=== PATIENT | female | born 1995 | race Caucasian/White ===

== ENCOUNTER 2020-01-02 20:04 | Outpatient (CLI) | payer MEDICAID ==
[~2020-01-02] VITALS: Ht 64 cm; Wt 77.8 kg
--- NOTE | 2020-01-02 20:12 | NUR ---
ANURAG MARSHALL presented to unit via ambulatory from ED, accompanied by so, with c/o BACK PAIN. ANURAG MARSHALL weighed, gowned, voided, and to bed. EFHM and TOCO applied, VS taken. ANURAG MARSHALL oriented to bed controls, call light, TV, heat, and A/C controls.
[2020-01-02 20:27] VITALS: BP 114/76
[2020-01-02] MEDS ORDERED: ACET-2267 PO (20:36)
[2020-01-02] MEDS ORDERED: PNV11TAB PO (20:36)
[2020-01-02 20:39] VITALS: BP 114/76
[2020-01-02 20:41] LABS: BILIRUBIN,URINE NEGATIVE (NEGATIVE); COLOR,URINE YELLOW; GLUCOSE, URINE (UA) NEGATIVE (NEGATIVE); KETONES,URINE 3+ (NEGATIVE); LEUKOCYTE ESTERASE ,URINE NEGATIVE (NEGATIVE); NITRITE,URINE NEGATIVE (NEGATIVE); PROTEIN,URINE TRACE (NEGATIVE)
--- NOTE | 2020-01-02 20:43 | NUR ---
Dr. Markham called with report of pt. Informed of pt complaints. Informed that pt had one contraction when put on the monitor, but since has just had some irritability. Strip reviewed. Informed that clean catch urine was sent down, but results are still pending. Vitals reviewed. orders to push oral hydration and let him know when UA is back. States that if urine is clean and pt continues with no contractions she can be discharged in an hour.
[2020-01-02 20:48] LABS: BACTERIA,URINE TRACE /HPF; CLARITY,URINE SL CLOUDY; RBC,URINE 50-100 /HPF; WBC,URINE 0-2 /HPF
--- NOTE | 2020-01-02 21:00 | NUR ---
Dr. Markham called and read UA results. orders an IV to be started and 1liter of D5LR to be bolused over that next hour.
[2020-01-02] MEDS ORDERED: D5 LR IV SOLUTION 1,000 ML IV ONE (21:15)
[2020-01-02 21:32] VITALS: BP 114/76
[2020-01-02 22:40] VITALS: BP 103/58
--- NOTE | 2020-01-02 22:49 | NUR ---
Dr. Markham called with contraction pattern and pt update. Discharged orders given. Pt. is to follow up with Dr. Bruce this week.
--- NOTE | 2020-01-03 08:09 | Physician Query-Final Dx ---
MATTHIAS GIBSON 01/03/20 0809: Clinic Account Progress/Dx Physician Query: Please give diagnosis Please give # weeks gestation Date of Service Jan 02, 2020 at 20:04 JOHN COLMENARES MD 01/03/20 1112: Clinic Account Progress/Dx DIAGNOSIS: Diagnosis false labor at 35 weeks gestation MATTHIAS GIBSON Jan 03, 2020 08:09 JOHN COLMENARES MD Jan 03, 2020 11:12
== END 2020-01-02 23:00 | disposition home or self-care (01) ==
LOC: WSo 20:04 → LDRP 20:05 → WSo 23:00
PROVIDERS: ATTEND Obstetrics & Gynecology
DX: O47.03 False labor before 37 completed weeks of gestation, third trimester (principal); Z3A.35 35 weeks gestation of pregnancy
CPT/HCPCS: 81000

== ENCOUNTER 2020-01-20 19:53 | Outpatient (CLI) | payer MEDICAID ==
[~2020-01-20] VITALS: Ht 162.6 cm; Wt 91.1 kg
[~2020-01-20 19:53] MED LIST: ACET-2267 PO; PNV11TAB PO
--- NOTE | 2020-01-20 20:00 | NUR ---
ANURAG MARSHALL presented to unit via ambulatory from ED, accompanied by s/o, with c/o CONTRACTIONS. ANURAG MARSHALL weighed, gowned, voided, and to bed. EFHM and TOCO applied, VS taken. ANURAG MARSHALL oriented to bed controls, call light, TV, heat, and A/C controls. above and further assessements carried out per this rn, see int. and labor flowsheet.
[2020-01-20 20:14] VITALS: BP 109/60
[2020-01-20 21:00] VITALS: BP 109/60
[2020-01-20] MEDS ORDERED: D5 LR IV SOLUTION 1,000 ML IV ONE ×2 (21:28→22:30)
[2020-01-20 21:53] LABS: BASOPHILS % (AUTO) 0 % (0-10); EOSINOPHILS # (AUTO) 0.2 10^3/uL (0.0-0.3); EOSINOPHILS % (AUTO) 1 % (0-10); HEMATOCRIT 33 % (35-52); HEMOGLOBIN 11.3 G/DL (11.5-16.0); LYMPHOCYTES # (AUTO) 3.5 X 10^3 (1.0-4.0); LYMPHOCYTES % (AUTO) 19 % (12-44); MEAN CORPUSCULAR HEMOGLOBIN 32 PG (25-34); MEAN CORPUSCULAR HGB CONC 35 G/DL (32-36); MEAN CORPUSCULAR VOLUME 92 FL (80-99); MEAN PLATELET VOLUME 10.8 FL (7.4-10.4); MONOCYTES # (AUTO) 1.7 X 10^3 (0.0-1.0); MONOCYTES % (AUTO) 9 % (0-12); NEUTROPHILS # (AUTO) 13.2 X 10^3 (1.8-7.8); NEUTROPHILS % (AUTO) 71 % (42-75); PLATELET COUNT 378 10^3/uL (130-400); RED CELL DISTRIBUTION WIDTH 12.4 % (10.0-14.5); WHITE BLOOD COUNT 18.6 10^3/uL (4.3-11.0)
[2020-01-20 22:23] LABS: BILIRUBIN,URINE NEGATIVE (NEGATIVE); CLARITY,URINE CLEAR; COLOR,URINE YELLOW; GLUCOSE, URINE (UA) 1+ (NEGATIVE); KETONES,URINE NEGATIVE (NEGATIVE); LEUKOCYTE ESTERASE ,URINE NEGATIVE (NEGATIVE); NITRITE,URINE NEGATIVE (NEGATIVE); PH,URINE 5.5 (5-9); PROTEIN,URINE NEGATIVE (NEGATIVE)
[2020-01-20 22:25] LABS: BAND NEUTROPHILS 7 %; EOSINOPHILS % (MANUAL) 1 %; LYMPHOCYTES % (MANUAL) 22 %; MONOCYTES % (MANUAL) 9 %; NEUTROPHILS % (MANUAL) 61 %; RBC MORPH NORMAL
[2020-01-20 22:28] VITALS: BP 109/60
[2020-01-20 22:31] LABS: BACTERIA,URINE NEGATIVE /HPF; RBC,URINE RARE /HPF
[2020-01-21] MEDS ORDERED: D5 LR IV SOLUTION 1,000 ML IV ONE (05:11)
--- NOTE | 2020-01-21 07:35 | NUR ---
Dr Markham discussed plan of care with GISELLE. Erika Rice notified Dr Markham of recent sve with no change overnight. New orders for discharge received.
--- NOTE | 2020-01-21 08:05 | NUR ---
Discharge instructions explained, signed and copy to patient. pt verbalized understanding of instructions and denied questions.
--- NOTE | 2020-01-21 08:10 | NUR ---
Ambulates self off unit accompanied by s.o. To private vehicle with belongings in hand.
--- NOTE | 2020-01-21 08:30 | Physician Query-Final Dx ---
MATTHIAS GIBSON 01/21/20 0830: Clinic Account Progress/Dx Physician Query: Please give diagnosis Please include # weeks gestation Date of Service Jan 20, 2020 at 19:53 JOHN COLMENARES MD 01/22/20 0733: Clinic Account Progress/Dx DIAGNOSIS: Diagnosis 37 weeks gestation with false labor MATTHIAS GIBSON Jan 21, 2020 08:30 JOHN COLMENARES MD Jan 22, 2020 07:33
== END 2020-01-21 08:10 | disposition home or self-care (01) ==
LOC: WSo 19:53 → LDRP 19:54 → WSo 01-21 08:10
PROVIDERS: ATTEND Obstetrics & Gynecology
DX: O62.9 Abnormality of forces of labor, unspecified (principal); Z3A.00 Weeks of gestation of pregnancy not specified
CPT/HCPCS: 36415; 81000; 85007; 85027; 96360; 96361; 99214